=== PATIENT | female | born 1970 | race American Indian/Alaskan Native ===

== ENCOUNTER 2019-01-02 08:59 | Outpatient (CLI) | payer OTHER ==
--- NOTE | 2019-01-03 08:33 | Mammography Report ---
DIGITAL SCREENING MAMMOGRAM WITH CAD, 01/02/2019 INDICATION: Routine screening mammography. TECHNIQUE: Digital bilateral 2D mammography was obtained in the craniocaudal and mediolateral obliq ue projections. This examination was interpreted with the benefit of Computer-Aided Detection analysi s. COMPARISON: 12/26/2017 and 12/10/2014 FINDINGS: Breast Density: The breasts are heterogeneously dense, which may obscure small masses. There is no evidence of dominant mass, suspicious calcifications or architectural distortion in eithe r breast. IMPRESSION: No mammographic evidence of malignancy. Follow up recommendation: Routine yearly BI-RADS Category 1: Negative. A "normal" or negative report should not discourage follow up or biopsy of a clinically significant f inding. A written summary of these findings will be mailed to the patient. The patient will be entered into a mammography reporting system which will generate a reminder letter for the patient's next appointmen t at the appropriate interval. The [employer] recommends yearly mammograms starting at age 40 and continuing as l juan as a woman is in good health. Breast MRI is recommended for women with an approximate 20-25% or greater lifetime risk of breast cancer, including women with a strong family history of breast or ova teresa cancer or who have been treated for Hodgkin's disease. Signer Name: Nelson Cruz MD Signed: 01/03/2019 8:29 AM Workstation Name: [id number]
== END 2019-01-02 09:00 | disposition home or self-care (01) ==
LOC: SPVWC 08:59
PROVIDERS: ATTEND Pediatrics
DX: Z12.31 Encounter for screening mammogram for malignant neoplasm of breast (principal)
CPT/HCPCS: 77067

== ENCOUNTER 2020-01-04 10:43 | Outpatient (CLI) | payer OTHER ==
--- NOTE | 2020-01-04 11:59 | Mammography Report ---
DIGITAL SCREENING MAMMOGRAM WITH CAD, 01/04/2020 INDICATION: Routine screening mammography. TECHNIQUE: Digital bilateral 2D mammography was obtained in the craniocaudal and mediolateral obliq ue projections. This examination was interpreted with the benefit of Computer-Aided Detection analysi s. COMPARISON: 12/26/2017, 01/02/2019. FINDINGS: Breast Density: There are scattered areas of fibroglandular density. There is no evidence of dominant mass, suspicious calcifications or architectural distortion in eithe r breast. IMPRESSION: Follow up recommendation: Routine yearly BI-RADS Category 1: Negative. A "normal" or negative report should not discourage follow up or biopsy of a clinically significant f inding. A written summary of these findings will be mailed to the patient. The patient will be entered into a mammography reporting system which will generate a reminder letter for the patient's next appointmen t at the appropriate interval. The [employer] recommends yearly mammograms starting at age 40 and continuing as l juan as a woman is in good health. Breast MRI is recommended for women with an approximate 20-25% or greater lifetime risk of breast cancer, including women with a strong family history of breast or ova teresa cancer or who have been treated for Hodgkin's disease. Signer Name: Jose March MD Signed: 01/04/2020 11:55 AM Workstation Name: [id number]
== END 2020-01-04 10:44 | disposition home or self-care (01) ==
LOC: SPVWC 10:43
PROVIDERS: ATTEND Pediatrics
DX: Z12.31 Encounter for screening mammogram for malignant neoplasm of breast (principal)
CPT/HCPCS: 77067

== ENCOUNTER 2021-01-13 10:33 | Outpatient (CLI) | payer OTHER | END 2021-01-13 10:34 | disposition home or self-care (01) | LOC: SPVWC 10:33 | PROVIDERS: ATTEND Pediatrics | DX: Z12.31 Encounter for screening mammogram for malignant neoplasm of breast (principal) | CPT/HCPCS: 77067 ==